=== PATIENT | male | born 1985 | race African-American/Black ===

== ENCOUNTER 2022-03-18 18:58 | Emergency (ER) | payer OTHER ==
[~2022-03-18] VITALS: Ht 167.6 cm; Wt 81.0 kg
[2022-03-18] MEDS ORDERED: VOLTAREN75 MG PO (21:05)
[2022-03-18 21:57] VITALS: BP 134/84
== END 2022-03-18 21:59 | disposition home or self-care (01) | DRG 605 ==
LOC: ED 18:58
DX: S80.02XA Contusion of left knee, initial encounter (principal); S80.01XA Contusion of right knee, initial encounter; S90.32XA Contusion of left foot, initial encounter; S90.31XA Contusion of right foot, initial encounter; S90.02XA Contusion of left ankle, initial encounter; S90.01XA Contusion of right ankle, initial encounter; V13.4XXA Pedal cycle driver injured in collision with car, pick-up truck or van in traffic accident, initial encounter; S90.512A Abrasion, left ankle, initial encounter; S90.511A Abrasion, right ankle, initial encounter; S90.812A Abrasion, left foot, initial encounter; S90.811A Abrasion, right foot, initial encounter; S80.212A Abrasion, left knee, initial encounter; S80.211A Abrasion, right knee, initial encounter